=== PATIENT | female | born 1975 | race African-American/Black ===

== ENCOUNTER → 2017-09-17 | Day surgery (SDC) | payer BC ==
--- NOTE | 2017-09-18 13:10 | PATH ---
Surgical Pathology Report Patient Name: ASHA TENA [facility]. Rec. #: [id number] /Age/Gender: 1975 (Age: 42) / F Account: [id number] Location: RADIOLOGY [facility] Taken: 09/17/2017 Received: 09/17/2017 Reported: 09/18/2017 Physicians: Wes Loredo M.D. 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 Electronically Signed Roya Torres M.D. Gross Description Received in formalin labeled "right 12:00," are 5 pleitez-yellow, cylindrical portions of fibroadipose tissue ranging from 0.1-0.8 cm in length and averaging 0.1 cm in diameter. The specimens are submitted in toto in one cassette. Total formalin fixation time: Between 6-10 hours 09/17/201709/17/2017
== END | disposition home or self-care (01) ==
LOC: JRADUS-SUR 09:57
PROVIDERS: ATTEND Obstetrics & Gynecology
PROC: 0HBT3ZX Excision of Right Breast, Percutaneous Approach, Diagnostic (ICD-10-PCS; principal; 2017-09-17)
DX: D24.1 Benign neoplasm of right breast (principal)
CPT/HCPCS: 19083; 87899; 88305-TC; A4648